=== PATIENT | male | born 1985 | race Caucasian/White ===

== ENCOUNTER 2023-11-04 12:22 | Emergency (ER) | payer SELFPAY ==
--- NOTE | ~2023-11-04 | XR_ITS ---
EXAMINATION: XR abdomen/kub 1V DATE: 11/04/2023 13:07 INDICATION: Abdominal pain TECHNIQUE: A supine view of the abdomen on 2 radiographs was obtained. COMPARISON: None. FINDINGS: Small to moderate amount of gas and stool scattered throughout the colon. No dilated loops of gas-ede led bowel to suggest obstruction. No suspicious calcifications in the abdomen or pelvis. Visualized l skip bases are clear. Heart size is normal. Mild lower lumbar levocurvature with at least mild spondyl osis. IMPRESSION: 1. Normal bowel gas pattern. Reviewed, dictated and finalized at location B.
[2023-11-04 12:40] VITALS: BP 129/86; PULSE 85; RESP 16; TEMP 36.7; O2SAT 98
--- NOTE | 2023-11-04 13:03 | ED.ABDPAIN ---
HPI - Abdominal Pain General Chief Complaint: Abdominal Pain Stated Complaint: Stomach Pain Time Seen by Provider: 11/04/23 12:50 Source: patient and RN notes reviewed Mode of arrival: ambulatory Limitations: no limitations History of Present Illness HPI narrative: 38-year-old male presents with concern for abdominal discomfort for 2 weeks. Reports 2/chin. Reports it is more uncomfortable than painful. Reports he feels bloated. Reports when he is sitting down it feels like he needs have a bowel movement but he does not necessarily need to, in often does not have a bowel movement when he tries. He denies constipation. He reports he has had blood in the toilet the last 2 days without stool. He denies nausea or vomiting. Denies any history of problems with his stomach. He denies fever, urine frequency, urgency, difficulty emptying bladder. MD elicited complaint: abdominal pain Related Data Home Medications Medication Instructions Recorded Confirmed No Home Medications 11/04/23 11/04/23 Allergies Allergy/AdvReac Type Severity Reaction Status Date / Time No Known Allergies Allergy Verified 11/04/23 12:40 Review of Systems Review of Systems: CONSTITUTIONAL: Denies malaise, chills, sweats, or fever. ENT: Denies rhinorrhea, congestion, sinus pain, otalgia or sore throat. CARDIOVASCULAR: Denies chest pain, palpitations, or edema. RESPIRATORY: Denies cough or dyspnea. GASTROINTESTINAL: Reports abdominal discomfort, bloating, blood in his stool. Denies nausea, vomiting, diarrhea GENITOURINARY: Denies dysuria or hematuria. MUSCULOSKELETAL: Denies myalgia. NEUROLOGIC: Denies headache. All systems reviewed & are unremarkable except as noted in HPI and below PMFSH Comments At time of signature, agree with nursing past medical, surgical, social and family history. There is no relevant family history pertinent to the presenting complaint Exam Narrative: GENERAL: Well-appearing, well-nourished, and in no acute distress. HEAD: Normocephalic, atraumatic. EYES: PERRLA, conjunctivae clear, and EOMI. ENT: Nares clear, turbinates pink, no rhinorrhea or epistaxis. Mucous membranes moist. Oropharynx without edema, erythema, or lesions. Tonsils not enlarged and without exudate. NECK: Supple. No lymphadenopathy CHEST: Speaks in full sentences. No respiratory distress. HEART: Regular rate and rhythm. ABDOMEN: Soft, flat, nondistended, nontender. No guarding, rebound tenderness, or rigidity. No pulsatile masses. Bowel sounds present in all four quadrants. No organomegaly. Negative Theodore?s sign. No periumbilical tenderness. No Supra public tenderness or distension. Good femoral pulses bilaterally. No hernia noted. No scars or surface trauma. SKIN: Warm, dry, no rash. NEURO: Alert and oriented x3. PSYCH: Normal mood and affect GI: Rectal Exam: visual inspection normal and normal sphincter tone Course Course Emergency Course: Discussed exam and x-ray findings with the patient. There are no acute findings on his exam. I advised him that he needs further evaluation of his symptoms, offered transfer to the emergency room. Patient does not want to go to the emergency room right now, he rather see GI. I gave him referral for GI and advised if his symptoms worsen frequency GI he needs to go to the ER.Anticipatory guidance given. Patient agrees to follow-up as directed and is aware of reasons to seek care at the emergency department. Portions of this record may have been created with voice recognition software Level of Care: Express Care Visit Vital Signs Vital signs: Vital Signs Temperature 98.0 F 11/04/23 12:40 Pulse Rate 85 11/04/23 12:40 Respiratory Rate 16 11/04/23 12:40 Blood Pressure 129/86 11/04/23 12:40 Pulse Oximetry 98 11/04/23 12:40 Oxygen Delivery Room Air 11/04/23 12:40 Temperature 98.0 F 11/04/23 12:40 Pulse Rate 85 11/04/23 12:40 Respiratory Rate 16 11/04/23 12:40 B
== END 2023-11-04 13:25 | disposition home or self-care (01) ==
PROVIDERS: Emergency Provider Nurse Practitioner
DX: R14.0 Abdominal distension (gaseous) (principal)
CPT/HCPCS: 74018; 99203; G0463